=== PATIENT | male | born 1995 | race Two or more races ===

== ENCOUNTER 2016-08-30 15:48 | Emergency (ER) | payer MEDICAID ==
[~2016-08-30] VITALS: Ht 175.3 cm; Wt 68.0 kg
[2016-08-30 18:00] VITALS: BP 134/77
[2016-08-30] MEDS ORDERED: TDAP [DIPH/PERTUSSIS/TET] 0.5 ML VIAL IM ONE (18:00)
== END 2016-08-30 18:01 | disposition home or self-care (01) ==
LOC: ER 15:51
DX: S51.811A Laceration without foreign body of right forearm, initial encounter (principal); Z88.6 Allergy status to analgesic agent; W20.8XXA Other cause of strike by thrown, projected or falling object, initial encounter; Y93.89 Activity, other specified; Y92.89 Other specified places as the place of occurrence of the external cause; Y99.9 Unspecified external cause status
CPT/HCPCS: 12002; 99283; A4606; Z7610